=== PATIENT | female | born 1965 | race Caucasian/White ===

== ENCOUNTER 2019-03-30 11:29 | Inpatient (IN) | payer MEDICAID ==
[~2019-03-30] VITALS: Ht 157.5 cm; Wt 68.0 kg
[~2019-03-30 11:29] MED LIST: AMLO2.5T78 PO; CHOL200073 PO; CIPR500T4 PO; CLIN300C10 PO; DOXY100T21 PO; HYDR-3601 PO; INSU100I33 SC; SACC250C PO
[2019-03-30] MEDS ORDERED: SODIUM CHLORIDE 0.9% 1L BAG IV* STA (11:44)
[2019-03-30] MEDS ORDERED: KETOROLAC 15 MG INJ IV STA (11:54)
[2019-03-30] MEDS ORDERED: VANCOMYCIN 1 GM (PMX) 250 ML IVPB ONE (12:00)
[2019-03-30] MEDS ORDERED: ACETAMINOPHEN 325 MG TAB PO ONE (12:00)
[2019-03-30] MEDS ORDERED: PIPER-TAZO 3.375 GM IV (PMX) 100 ML IVPB ONE (12:00)
[2019-03-30] MEDS ORDERED: ACETAMINOPHEN 325 MG TAB PO PRN (13:00)
[2019-03-30] MEDS ORDERED: ONDANSETRON 4 MG INJ IV PRN (13:00)
[2019-03-30] MEDS ORDERED: MAGNESIUM HYDROXIDE 30ML CUP PO PRN (16:30)
[2019-03-30] MEDS ORDERED: GLUCOSE GEL 15 GRAM TUBE PO PRN ×2 (16:30)
[2019-03-30] MEDS ORDERED: VANCOMYCIN IV PER PHARMACY XX SCH (16:30)
[2019-03-30] MEDS ORDERED: DEXTROSE 50% 50 ML SYRINGE IV PRN ×2 (16:30)
[2019-03-30] MEDS ORDERED: GLUCAGON 1 MG INJ IM PRN (16:30)
[2019-03-30] MEDS ORDERED: GLUCOSE GEL 15 GRAM TUBE BUCCAL PRN (16:30)
[2019-03-30] MEDS ORDERED: HYDROCODONE/APAP (5/325) TAB PO PRN (16:30)
[2019-03-30] MEDS ORDERED: NACL 0.9% 3 ML SYG IV SCH (16:30)
[2019-03-30] MEDS ORDERED: morphine 2 MG INJ IV PRN (16:30)
[2019-03-30] MEDS: INSULIN ASPART [NOVOLOG] 3 ML PEN SC SCH ×2 (18:15→20:24)
[2019-03-30] MEDS: INSULIN GLARGINE [LANTus] (100 UNITS/ML) SYG SC SCH (20:24)
[2019-03-30] MEDS: HEPARIN 5,000 UNIT/1 ML VIAL SC SCH (20:25)
[2019-03-30 20:48] VITALS: BP 145/65; PULSE 106; RESP 18
[2019-03-30 21:50] VITALS: Ht 157.5 cm; Wt 68.0 kg
[2019-03-30] MEDS: PIPER-TAZO 3.375 GM IV (PMX) 100 ML IVPB SCH (21:52)
[2019-03-30] MEDS: VANCOMYCIN 750 MG (PMX) 250 ML IVPB SCH (23:57)
[2019-03-31] VITALS (13 sets, daily range): BP systolic 122–151; BP diastolic 52–87; PULSE 62–111; RESP 17–20
[2019-03-31] MEDS ORDERED: ACCU-CHEK XX SCH ×2 (02:00)
[2019-03-31] MEDS ORDERED: INSULIN ASPART [NOVOLOG] 3 ML PEN SC ONE (02:30)
[2019-03-31] MEDS ORDERED: INSULIN ASPART [NOVOLOG] 3 ML PEN SC SCH (05:00)
[2019-03-31] MEDS: PANTOPRAZOLE 40 MG INJ IV SCH (05:55)
[2019-03-31] MEDS: PIPER-TAZO 3.375 GM IV (PMX) 100 ML IVPB SCH ×4 (05:58→21:33)
[2019-03-31] MEDS: ONDANSETRON 4 MG INJ IV PRN ×2 (06:07→20:44)
[2019-03-31] MEDS ORDERED: BUPIVACAINE 0.5% (SDV) 30 ML INJ ONE (07:09)
[2019-03-31] MEDS ORDERED: POLYMYXIN B 500000 UNIT INJ ONE (07:09)
[2019-03-31] MEDS ORDERED: LIDOCAINE 1% (MPF) 30 ML INJ ONE (07:09)
[2019-03-31] MEDS ORDERED: FENTAnyl 50 MCG/ML VIAL IV PRN (07:30)
[2019-03-31] MEDS ORDERED: LABETALOL HCL 20MG INJ IV PRN (07:30)
[2019-03-31] MEDS ORDERED: hydrALAzine 20 MG INJ IV PRN (07:30)
[2019-03-31] MEDS ORDERED: HYDROmorphONE 1 MG/5 ML IV SYRINGE IV PRN ×3 (07:30)
[2019-03-31] MEDS ORDERED: PROCHLORPERAZINE 10 MG INJ IV PRN (07:30)
[2019-03-31] MEDS ORDERED: ONDANSETRON 4 MG INJ IV PRN (07:30)
[2019-03-31] MEDS ORDERED: DIPHENHYDRAMINE 50 MG INJ IV PRN (07:30)
[2019-03-31] MEDS ORDERED: MEPERIDINE 25 MG INJ IV PRN (07:30)
[2019-03-31] MEDS ORDERED: LIDOCAINE 2% (SDV) 5 ML INJ ONE (07:45)
[2019-03-31] MEDS ORDERED: MIDAZOLAM 1 MG/ML 2 ML INJ ONE (07:45)
[2019-03-31] MEDS ORDERED: PROPOFOL 20 ML ONE (07:45)
[2019-03-31] MEDS ORDERED: FENTAnyl 50 MCG/ML VIAL ONE (07:51)
[2019-03-31] MEDS ORDERED: POLYMYXIN/BACITRACIN 1L IRRIG IRR ONE (08:13)
[2019-03-31] MEDS ORDERED: EPHEDrine 25 MG/5 ML SYG ONE (08:23)
[2019-03-31] MEDS ORDERED: POLYMYXIN/BACITRACIN 1L IRRIG ONE (08:31)
[2019-03-31] MEDS: HEPARIN 5,000 UNIT/1 ML VIAL SC SCH ×2 (09:00→20:37)
[2019-03-31] MEDS: INSULIN ASPART [NOVOLOG] 3 ML PEN SC SCH ×4 (10:37→20:36)
[2019-03-31] MEDS: VANCOMYCIN 750 MG (PMX) 250 ML IVPB SCH (12:54)
[2019-03-31] MEDS: INSULIN GLARGINE [LANTus] (100 UNITS/ML) SYG SC SCH (20:36)
[2019-03-31] MEDS: ACETAMINOPHEN 325 MG TAB PO PRN (21:33)
[2019-04-01] MEDS: VANCOMYCIN 750 MG (PMX) 250 ML IVPB SCH (00:07)
[2019-04-01 01:49] VITALS: BP 113/58; PULSE 94; RESP 18
[2019-04-01] MEDS: PANTOPRAZOLE 40 MG INJ IV SCH (05:10)
[2019-04-01] MEDS: PIPER-TAZO 3.375 GM IV (PMX) 100 ML IVPB SCH ×3 (05:10→21:15)
[2019-04-01 07:33] VITALS: BP 158/75; PULSE 87; RESP 16
[2019-04-01] MEDS: HEPARIN 5,000 UNIT/1 ML VIAL SC SCH ×2 (08:39→20:47)
[2019-04-01] MEDS: INSULIN ASPART [NOVOLOG] 3 ML PEN SC SCH ×4 (08:40→20:49)
[2019-04-01] MEDS: DAKINS 0.0125%(1/40) 473 ML SOLUTION TP SCH (12:21)
[2019-04-01] MEDS: VANCOMYCIN 1.25 GM/NS 250 ML 250 ML IVPB SCH (12:22)
[2019-04-01 13:47] VITALS: BP 145/72; PULSE 89; RESP 16
[2019-04-01 19:45] VITALS: BP 128/80; PULSE 100; RESP 18
[2019-04-01] MEDS: ONDANSETRON 4 MG INJ IV PRN (20:46)
[2019-04-01] MEDS: ACETAMINOPHEN 325 MG TAB PO PRN (20:46)
[2019-04-01] MEDS: INSULIN GLARGINE [LANTus] (100 UNITS/ML) SYG SC SCH (20:50)
[2019-04-02] MEDS: VANCOMYCIN 1.25 GM/NS 250 ML 250 ML IVPB SCH ×2 (00:51→11:48)
[2019-04-02 01:09] VITALS: BP 117/68; PULSE 85; RESP 18
[2019-04-02] MEDS: PIPER-TAZO 3.375 GM IV (PMX) 100 ML IVPB SCH ×2 (05:36→13:34)
[2019-04-02] MEDS: PANTOPRAZOLE (EC) 40 MG TAB PO SCH (05:36)
[2019-04-02] MEDS: ONDANSETRON 4 MG INJ IV PRN ×2 (05:45→23:44)
[2019-04-02 07:54] VITALS: BP 147/77; PULSE 91; RESP 16
[2019-04-02] MEDS: HEPARIN 5,000 UNIT/1 ML VIAL SC SCH ×2 (08:35→20:08)
[2019-04-02] MEDS: DAKINS 0.0125%(1/40) 473 ML SOLUTION TP SCH (08:36)
[2019-04-02] MEDS: INSULIN ASPART [NOVOLOG] 3 ML PEN SC SCH ×5 (08:36→20:07)
[2019-04-02] MEDS: LISINOPRIL 5 MG TAB PO SCH (08:36)
[2019-04-02 13:51] VITALS: BP 116/62; PULSE 60; RESP 18
[2019-04-02] MEDS ORDERED: POTASSIUM CHLORIDE (SR) 10 MEQ TAB PO ONE (14:00)
[2019-04-02] MEDS ORDERED: MAGNESIUM SULFATE 2 GM/50 ML 50 ML IVPB ONE (14:00)
[2019-04-02] MEDS: MEROPENEM 1 GM/50ML(PMX) 50 ML IVPB SCH ×2 (14:28→23:36)
[2019-04-02] MEDS: INSULIN GLARGINE [LANTus] (100 UNITS/ML) SYG SC SCH (20:06)
[2019-04-02 20:39] VITALS: BP 114/57; PULSE 90; RESP 18
[2019-04-03] VITALS (14 sets, daily range): BP systolic 110–161; BP diastolic 59–92; PULSE 80–102; RESP 13–24
[2019-04-03] MEDS ORDERED: VANCOMYCIN 1.25 GM/NS 250 ML 250 ML IVPB SCH (01:00)
[2019-04-03] MEDS ORDERED: ACCU-CHEK XX ONE (02:30)
[2019-04-03] MEDS ORDERED: INSULIN ASPART [NOVOLOG] 3 ML PEN SC ONE (02:30)
[2019-04-03] MEDS: PANTOPRAZOLE (EC) 40 MG TAB PO SCH (05:43)
[2019-04-03] MEDS: INSULIN ASPART [NOVOLOG] 3 ML PEN SC SCH ×7 (07:35→20:10)
[2019-04-03] MEDS: HEPARIN 5,000 UNIT/1 ML VIAL SC SCH ×2 (09:00→20:09)
[2019-04-03] MEDS: DAKINS 0.0125%(1/40) 473 ML SOLUTION TP SCH (09:00)
[2019-04-03] MEDS: LISINOPRIL 5 MG TAB PO SCH (09:00)
[2019-04-03] MEDS: CHOLECALCIFEROL 2,000 UNIT CAP PO SCH (09:00)
[2019-04-03] MEDS: MEROPENEM 1 GM/50ML(PMX) 50 ML IVPB SCH (09:18)
[2019-04-03] MEDS: CLINDAMYCIN 900 MG (PMX) 50 ML IVPB SCH ×2 (14:46→22:02)
[2019-04-03] MEDS ORDERED: POLYMYXIN/BACITRACIN 1L IRRIG ONE (15:53)
[2019-04-03] MEDS ORDERED: LIDOCAINE 1% (MPF) 30 ML INJ ONE (15:58)
[2019-04-03] MEDS ORDERED: FENTAnyl 50 MCG/ML VIAL ONE (16:01)
[2019-04-03] MEDS ORDERED: MIDAZOLAM 1 MG/ML 2 ML INJ ONE (16:01)
[2019-04-03] MEDS ORDERED: PROPOFOL 20 ML ONE (16:01)
[2019-04-03] MEDS ORDERED: VANCOMYCIN 1 GM INJ IRR ONE (16:23)
[2019-04-03] MEDS ORDERED: VANCOMYCIN 1 GM INJ ONE (17:03)
[2019-04-03] MEDS ORDERED: MEPERIDINE 25 MG INJ IV PRN (18:00)
[2019-04-03] MEDS ORDERED: METOCLOPRAMIDE 10 MG INJ IV PRN (18:00)
[2019-04-03] MEDS ORDERED: ONDANSETRON 4 MG INJ IV PRN (18:00)
[2019-04-03] MEDS ORDERED: hydrALAzine 20 MG INJ IV PRN (18:00)
[2019-04-03] MEDS ORDERED: DIPHENHYDRAMINE 50 MG INJ IV PRN (18:00)
[2019-04-03] MEDS ORDERED: FENTAnyl 50 MCG/ML VIAL IV PRN ×3 (18:00)
[2019-04-03] MEDS ORDERED: EPHEDrine 25 MG/5 ML SYG IV PRN (18:00)
[2019-04-03] MEDS ORDERED: MIDAZOLAM 1 MG/ML 2 ML INJ IV PRN (18:00)
[2019-04-03] MEDS ORDERED: LABETALOL HCL 20MG INJ IV PRN (18:00)
[2019-04-03] MEDS: INSULIN GLARGINE [LANTus] (100 UNITS/ML) SYG SC SCH (20:09)
[2019-04-03] MEDS: CIPROFLOXACIN 400MG/D5W 200 ML IVPB SCH (20:11)
[2019-04-04 01:57] VITALS: BP 124/67; PULSE 89; RESP 18
[2019-04-04] MEDS ORDERED: INSULIN ASPART [NOVOLOG] 3 ML PEN SC ONE (02:30)
[2019-04-04] MEDS ORDERED: ACCU-CHEK XX ONE (04:30)
[2019-04-04] MEDS: PANTOPRAZOLE (EC) 40 MG TAB PO SCH (05:14)
[2019-04-04] MEDS: CLINDAMYCIN 900 MG (PMX) 50 ML IVPB SCH ×3 (05:14→22:21)
[2019-04-04] MEDS: ONDANSETRON 4 MG INJ IV PRN ×2 (07:49→10:51)
[2019-04-04 08:04] VITALS: BP 136/80; PULSE 80; RESP 18
[2019-04-04] MEDS: INSULIN ASPART [NOVOLOG] 3 ML PEN SC SCH ×7 (08:31→20:10)
[2019-04-04] MEDS: CIPROFLOXACIN 400MG/D5W 200 ML IVPB SCH ×2 (09:35→20:08)
[2019-04-04] MEDS: LISINOPRIL 5 MG TAB PO SCH (09:36)
[2019-04-04] MEDS: DAKINS 0.0125%(1/40) 473 ML SOLUTION TP SCH (09:36)
[2019-04-04] MEDS: CHOLECALCIFEROL 2,000 UNIT CAP PO SCH (09:36)
[2019-04-04] MEDS: HEPARIN 5,000 UNIT/1 ML VIAL SC SCH ×2 (09:37→20:10)
[2019-04-04 14:40] VITALS: BP 150/70; PULSE 78; RESP 20
[2019-04-04] MEDS: SOD CHLORIDE 0.9% 1,000 ML IV SCH (17:26)
[2019-04-04 19:42] VITALS: BP 110/55; PULSE 84; RESP 18
[2019-04-04] MEDS: INSULIN GLARGINE [LANTus] (100 UNITS/ML) SYG SC SCH (20:09)
[2019-04-05] MEDS: SOD CHLORIDE 0.9% 1,000 ML IV SCH (00:53)
[2019-04-05] MEDS: ONDANSETRON 4 MG INJ IV PRN ×2 (01:59→08:13)
[2019-04-05 02:32] VITALS: BP 137/66; PULSE 77; RESP 18
[2019-04-05] MEDS: PANTOPRAZOLE (EC) 40 MG TAB PO SCH (06:09)
[2019-04-05] MEDS: CLINDAMYCIN 900 MG (PMX) 50 ML IVPB SCH ×3 (06:10→23:18)
[2019-04-05 07:28] VITALS: BP 168/82; PULSE 79; RESP 18
[2019-04-05] MEDS: INSULIN ASPART [NOVOLOG] 3 ML PEN SC SCH ×9 (08:09→21:00)
[2019-04-05] MEDS: CHOLECALCIFEROL 2,000 UNIT CAP PO SCH (08:17)
[2019-04-05] MEDS: AMLODIPINE 2.5 MG TAB PO SCH (08:17)
[2019-04-05] MEDS: CIPROFLOXACIN 400MG/D5W 200 ML IVPB SCH ×2 (08:18→21:06)
[2019-04-05] MEDS: DAKINS 0.0125%(1/40) 473 ML SOLUTION TP SCH (08:19)
[2019-04-05] MEDS: HEPARIN 5,000 UNIT/1 ML VIAL SC SCH ×2 (08:22→21:14)
[2019-04-05] MEDS ORDERED: POTASSIUM CHLORIDE (SR) 10 MEQ TAB PO ONE (11:00)
[2019-04-05] MEDS: METOCLOPRAMIDE 10 MG INJ IV SCH ×2 (11:05→17:48)
[2019-04-05 13:57] VITALS: BP 160/72; PULSE 83; RESP 18
[2019-04-05 20:10] VITALS: BP 130/64; PULSE 82; RESP 18
[2019-04-05] MEDS: INSULIN GLARGINE [LANTus] (100 UNITS/ML) SYG SC SCH (21:05)
[2019-04-06] MEDS: METOCLOPRAMIDE 10 MG INJ IV SCH ×5 (01:03→23:55)
[2019-04-06 02:13] VITALS: BP 150/76; PULSE 78; RESP 20
[2019-04-06] MEDS: CLINDAMYCIN 900 MG (PMX) 50 ML IVPB SCH ×3 (06:40→22:26)
[2019-04-06] MEDS: PANTOPRAZOLE (EC) 40 MG TAB PO SCH (06:42)
[2019-04-06 07:59] VITALS: BP 151/70; PULSE 75; RESP 16
[2019-04-06] MEDS: CHOLECALCIFEROL 2,000 UNIT CAP PO SCH (08:24)
[2019-04-06] MEDS: CIPROFLOXACIN 400MG/D5W 200 ML IVPB SCH ×2 (08:25→21:12)
[2019-04-06] MEDS: AMLODIPINE 2.5 MG TAB PO SCH (08:25)
[2019-04-06] MEDS: INSULIN ASPART [NOVOLOG] 3 ML PEN SC SCH ×7 (08:32→22:12)
[2019-04-06] MEDS: DAKINS 0.0125%(1/40) 473 ML SOLUTION TP SCH (08:33)
[2019-04-06] MEDS: HEPARIN 5,000 UNIT/1 ML VIAL SC SCH ×2 (08:33→21:16)
[2019-04-06 14:32] VITALS: BP 167/74; PULSE 85; RESP 16
[2019-04-06 20:05] VITALS: BP 159/69; PULSE 85; RESP 16
[2019-04-06] MEDS: INSULIN GLARGINE [LANTus] (100 UNITS/ML) SYG SC SCH (21:15)
[2019-04-07 02:50] VITALS: BP 130/61; PULSE 78; RESP 18
[2019-04-07] MEDS: PANTOPRAZOLE (EC) 40 MG TAB PO SCH (06:23)
[2019-04-07] MEDS: CLINDAMYCIN 900 MG (PMX) 50 ML IVPB SCH ×3 (06:24→21:58)
[2019-04-07] MEDS: METOCLOPRAMIDE 10 MG INJ IV SCH ×4 (06:31→23:36)
[2019-04-07 07:52] VITALS: BP 146/74; PULSE 78; RESP 16
[2019-04-07] MEDS: CIPROFLOXACIN 400MG/D5W 200 ML IVPB SCH ×2 (08:12→20:11)
[2019-04-07] MEDS: CHOLECALCIFEROL 2,000 UNIT CAP PO SCH (08:15)
[2019-04-07] MEDS: DAKINS 0.0125%(1/40) 473 ML SOLUTION TP SCH (08:16)
[2019-04-07] MEDS: AMLODIPINE 2.5 MG TAB PO SCH (08:16)
[2019-04-07] MEDS: HEPARIN 5,000 UNIT/1 ML VIAL SC SCH ×2 (08:25→20:13)
[2019-04-07] MEDS: INSULIN ASPART [NOVOLOG] 3 ML PEN SC SCH ×7 (08:25→20:18)
[2019-04-07 14:10] VITALS: BP 140/69; PULSE 81; RESP 16
[2019-04-07] MEDS: INSULIN GLARGINE [LANTus] (100 UNITS/ML) SYG SC SCH (20:13)
[2019-04-07 20:26] VITALS: BP 168/82; PULSE 83; RESP 18
[2019-04-08 02:17] VITALS: BP 132/58; PULSE 82; RESP 18
[2019-04-08] MEDS: METOCLOPRAMIDE 10 MG INJ IV SCH ×3 (06:14→17:31)
[2019-04-08] MEDS: CLINDAMYCIN 900 MG (PMX) 50 ML IVPB SCH ×3 (06:14→22:08)
[2019-04-08] MEDS: PANTOPRAZOLE (EC) 40 MG TAB PO SCH (06:14)
[2019-04-08 07:39] VITALS: BP 151/79; PULSE 84; RESP 16
[2019-04-08] MEDS: AMLODIPINE 2.5 MG TAB PO SCH (08:13)
[2019-04-08] MEDS: CHOLECALCIFEROL 2,000 UNIT CAP PO SCH (08:13)
[2019-04-08] MEDS: CIPROFLOXACIN 400MG/D5W 200 ML IVPB SCH ×2 (08:13→20:47)
[2019-04-08] MEDS: HEPARIN 5,000 UNIT/1 ML VIAL SC SCH ×2 (08:14→20:52)
[2019-04-08] MEDS: INSULIN ASPART [NOVOLOG] 3 ML PEN SC SCH ×7 (08:15→20:58)
[2019-04-08] MEDS: DAKINS 0.0125%(1/40) 473 ML SOLUTION TP SCH (08:19)
[2019-04-08 14:27] VITALS: BP 146/72; PULSE 86; RESP 18
[2019-04-08 20:07] VITALS: BP 130/63; PULSE 83; RESP 17
[2019-04-08] MEDS: INSULIN GLARGINE [LANTus] (100 UNITS/ML) SYG SC SCH (20:56)
[2019-04-09] MEDS: METOCLOPRAMIDE 10 MG INJ IV SCH ×4 (00:16→17:16)
[2019-04-09 01:17] VITALS: BP 103/52; PULSE 78; RESP 18
[2019-04-09] MEDS: CLINDAMYCIN 900 MG (PMX) 50 ML IVPB SCH ×2 (05:42→14:49)
[2019-04-09] MEDS: PANTOPRAZOLE (EC) 40 MG TAB PO SCH (05:49)
[2019-04-09 07:45] VITALS: BP 124/75; PULSE 75; RESP 18
[2019-04-09] MEDS: CIPROFLOXACIN 400MG/D5W 200 ML IVPB SCH (08:25)
[2019-04-09] MEDS: AMLODIPINE 2.5 MG TAB PO SCH (08:25)
[2019-04-09] MEDS: CHOLECALCIFEROL 2,000 UNIT CAP PO SCH (08:26)
[2019-04-09] MEDS: HEPARIN 5,000 UNIT/1 ML VIAL SC SCH (08:31)
[2019-04-09] MEDS: INSULIN ASPART [NOVOLOG] 3 ML PEN SC SCH ×6 (08:31→17:15)
[2019-04-09] MEDS: DAKINS 0.0125%(1/40) 473 ML SOLUTION TP SCH (12:32)
[2019-04-09 14:00] VITALS: BP 114/53; PULSE 86; RESP 18
[2019-04-09 20:37] VITALS: BP 133/64; PULSE 85; RESP 20
== END 2019-04-09 21:50 | disposition home health service (06) | DRG 853 ==
LOC: E/R 11:29 → MS3 12:46 → CANRESERV 17:35 → MS3 18:39 → 2NE 04-05 11:35
PROVIDERS: ADMIT Hospitalist; ATTEND Hospitalist
PROC: 0KBW0ZZ Excision of Left Foot Muscle, Open Approach (ICD-10-PCS; 2019-04-03)
PROC: 0QBP0ZZ Excision of Left Metatarsal, Open Approach (ICD-10-PCS; principal; 2019-04-03 16:00)
DX: A41.9 Sepsis, unspecified organism (principal); N17.0 Acute kidney failure with tubular necrosis; L03.116 Cellulitis of left lower limb; L02.612 Cutaneous abscess of left foot; I77.5 Necrosis of artery; E11.621 Type 2 diabetes mellitus with foot ulcer; E11.42 Type 2 diabetes mellitus with diabetic polyneuropathy; E11.628 Type 2 diabetes mellitus with other skin complications; M65.872 Other synovitis and tenosynovitis, left ankle and foot; D64.9 Anemia, unspecified; I73.9 Peripheral vascular disease, unspecified; B95.7 Other staphylococcus as the cause of diseases classified elsewhere; E87.6 Hypokalemia
CPT/HCPCS: 36415; 71045; 73718; 76775; 80048; 80053; 80061; 80202; 81003; 82043; 82306; 82652; 82962; 83036; 83605; 83735; 84100; 84145; 84155; 84300; 84436; 84443; 84479; 84703; 85025; 85610; 85651; 85730; 86140; 87070; 87075; 87081; 87086; 87102; 93005; 93922; 96374; 96375; 97161; C9113; J0360; J0744; J1644; J1815; J1885; J2185; J2250; J2270; J2405; J2543; J2765; J3010; J3370; J3475; J7030